=== PATIENT | female | born 1960 | race African-American/Black ===

== ENCOUNTER 2019-03-31 08:26 | Inpatient (IN) | payer MEDICARE ==
[2019-03-31] MEDS ORDERED: Labetalol HCl 100 MG/20 ML VIAL ONE (08:47)
[2019-03-31] MEDS ORDERED: Ondansetron PF 4 MG/2 ML Vial ONE ×2 (08:50→11:48)
[2019-03-31] MEDS ORDERED: Morphine 4 MG/ML VIAL ONE (09:37)
[2019-03-31] MEDS ORDERED: Lorazepam 2 MG/ML VIAL ONE ×3 (09:40→16:10)
[2019-03-31] MEDS ORDERED: Iopamidol-370 76% 500 ML 1 ML ONE (11:38)
[2019-03-31] MEDS ORDERED: Piperacillin/Tazobactam 4.5 GM VIAL ONE (12:33)
[2019-03-31] MEDS ORDERED: Vancomycin 1.5 GRAM/300 ML BAG 1.5 GM in Premix Bag 1 BAG IVPB SCH (13:45)
--- NOTE | 2019-03-31 14:29 | CT ---
CT HEAD NONCONTRAST: Date: 03/31/19 HISTORY: Altered mental status. COMPARISON: None available. Hospital system is nonfunctional. FINDINGS: There is no evidence of acute intracranial hemorrhage or infarct. The ventricles appear normal in siz e, shape, and position. There is no mass effect or shift of midline structures. Visualized paranasal sinuses remain well aerated. IMPRESSION: No acute intracranial abnormalities are demonstrated. POS: [facility]
--- NOTE | 2019-03-31 14:30 | CT ---
CT ABDOMEN AND PELVIS WITH IV CONTRAST: Date: 03/31/19 HISTORY: Abdominal pain. Nausea and vomiting. COMPARISON: None available. Hospital system is nonfunctioning. FINDINGS: Very mild nonspecific ground-glass parenchymal opacity involving each lung base. Small hiatal hernia. Solid organs are intact. No enlarged lymph nodes or free fluid. Appendix not inflamed. No evidence of bowel obstruction or inflammation. Urinary bladder is unremarka ble. Mild degenerative changes lumbar spine. IMPRESSION: No significant abnormalities are demonstrated. POS: [facility]
[2019-03-31] MEDS ORDERED: diphenhydrAMINE 50 MG/ML VIAL ONE (14:39)
[2019-03-31] MEDS ORDERED: Haloperidol Lactate 5 MG/ML VIAL ONE (14:39)
[2019-03-31 14:53] LABS: ALT (SGPT) 17 U/L (8-55); AST (SGOT) 16 U/L (5-34); Acetaminophen Less than 6.0 mcg/mL (10.0-30.0); Albumin 3.7 g/dL (3.5-5.0); Alcohol Less than 10 mg/dL (Less than 10); Alkaline Phosphatase 140 U/L (40-110); Anion Gap 21 mmol/L (10-20); BUN (Urea Nitrogen) 24 mg/dL (9.8-20.1); Bilirubin, Total 0.7 mg/dL (0.2-1.2); Calc. Creatinine Clearance 0 mL/min (70-130); Calcium 9.8 mg/dL (7.8-10.44); Carbon Dioxide 20 mmol/L (22-29); Chloride 99 mmol/L (98-107); Estimated GFR-MDRD 42; Globulin 4.1 g/dL (2.4-3.5); Glucose 504 mg/dL (70-105); Lipase 13 U/L (8-78); Potassium 4.2 mmol/L (3.5-5.1); Protein, Total 7.8 g/dL (6.0-8.3); Salicylate Less than 8.0 mg/dL (15.0-30.0); Sodium 136 mmol/L (136-145)
[2019-03-31 14:55] LABS: Lactic Acid 3.5 mmol/L (0.5-2.2)
[2019-03-31] MEDS ORDERED: Acetaminophen 650 MG Suppository PR PRN (15:02)
[2019-03-31] MEDS ORDERED: Ondansetron PF 4 MG/2 ML Vial IVP PRN (15:02)
[2019-03-31] MEDS ORDERED: Dextrose 5% in Water 1,000 ML IV PRN (15:02)
[2019-03-31] MEDS ORDERED: Dextrose 50% Abboject 50 ML SYRINGE SLOW IVP PRN (15:02)
[2019-03-31] MEDS ORDERED: Labetalol HCl 100 MG/20 ML VIAL SLOW IVP PRN (15:12)
--- NOTE | 2019-03-31 15:45 | HP ---
PRIMARY CARE PROVIDER: Darcy. HISTORY OF PRESENT ILLNESS: Family with patient, do not live with her. The patient apparently woke up this morning, delirious. Daughter called the mineral technologist, it is reported that the patient is noncompliant with diet and medications. She was brought to the emergency room. No other history available. REVIEW OF SYSTEMS: Unobtainable due to the patient's obtunded mental status. PAST MEDICAL HISTORY: Pertinent for diabetes mellitus type 2, insulin dependent with neuropathy; hypertension; dyslipidemia. The patient is on unknown medicines according to the family that is here, however, when the patient was seen in an outlying emergency room earlier this year, she was on tizanidine 2 mg every 6 hours, losartan 100 mg a day, acyclovir 400 mg twice a day, tramadol 50 mg every 4 to 6 hours for pain, Lasix 20 mg a day, amlodipine 10 mg one-half tablet a day, Zocor 40 mg a day, gabapentin 600 mg three tabs twice a day, levothyroxine 50 mcg a day, Humulin R U-500 35 units with breakfast and lunch and 30 units with supper, and amitriptyline 25 units a day. ALLERGIES: SHE WAS REPORTED TO HAVE AN ALLERGY TO CEPHALEXIN. PAST SURGICAL HISTORY: and hysterectomy. FAMILY HISTORY: Diabetes in multiple members of the family. SOCIAL HISTORY: Father, Shyam Murphy at bedside. She is single. He is her next of kin. No tobacco. No alcohol. PHYSICAL EXAMINATION: GENERAL/VITAL SIGNS: She would respond, but not appropriately to verbal stimuli. Blood pressure was 180/105, respirations are 16, pulse rate 92, and temperature 98. In general, she is an overweight female. HEAD, EYES, EARS, NOSE, and THROAT: Reveals pupils are equal and round. Extraocular movements are intact. Sclerae are white. Tympanic membranes occluded with cerumen. Nose is clear. Mouth is clear. Multiple teeth missing. NECK: No jugular venous distention, adenopathy, or thyromegaly. CHEST: Distant breath sounds, but clear. No rales or wheezes. HEART: Regular rate and rhythm. No murmurs. No gallops. ABDOMEN: Protuberant. No hepatosplenomegaly. No mass. No rebound. EXTREMITIES: Reveal 1+ edema. No cyanosis or clubbing. PULSES: Carotid, radial, femoral, and dorsalis pedis pulses intact. SKIN: Warm and dry without bruises or rash. HEME/LYMPH: No tender or swollen lymph nodes noted. NEUROLOGIC: Cranial nerves grossly intact. Moves all extremities. LABORATORY DATA: I was told that the hemoglobin was less than 7. The blood sugar was greater than 600. I find no documentation of this in the chart. No EKG has been provided. No chest x-ray has been provided. Brain CT shows no acute intracranial process. Abdomen and pelvis CT are unrevealing. ADMITTING DIAGNOSES: 1. Encephalopathy. 2. Severe anemia. 3. Diabetes mellitus type 2, insulin dependent, uncontrolled with marked hyperglycemia. 4. Hypertension. 5. Dyslipidemia. PLAN: Blood cultures have been ordered. Cefepime and vancomycin have been ordered. Sliding scale insulin with q.4 hours Accu-Cheks have been ordered. H and H q.6 hours has been ordered after transfusion because there are no labs on the chart. I have at this point ordered a stat CBC, a stat basic metabolic profile, and a stat chest x-ray. The patient needs a stool for occult blood. This case is very confusing and difficult due to the downtime of the computer system at [facility]. The lack of confirmation of laboratory for her elevated blood pressure, p.r.n. labetalol and Apresoline orders have been ordered. Hopefully, we can get this patient out of the emergency room soon and up stairs. Job ID: [id number]
[2019-03-31 15:53] LABS: Hemoglobin 6.3 g/dL (12.0-16.0); Mean Corpuscular HGB CONC 33.2 g/dL (32.0-36.0); Mean Corpuscular Hemoglobin 29.2 pg (27.0-31.0); Mean Corpuscular Volume 87.8 fL (78.0-98.0); Mean Platelet Volume 9.7 fL (7.4-10.4); Platelet Count 507 thou/uL (130-400); RBC Distribution Width 12.7 % (11.5-14.5); Red Blood Cell (RBC) Count 2.16 mill/uL (4.20-5.40); White Blood Cell (WBC) Count 19.9 thou/uL (4.8-10.8)
[2019-03-31 15:54] LABS: Band 1 % (5-11); Eosinophils 2 % (0-10); Lymphocytes 15 % (21-51); MDiff Complete? YES; Monocytes 4 % (0-10); Neutrophil 77 % (42-75)
[2019-03-31 15:55] LABS: Polychromasia SLIGHT = 2-3 cells (100X) (0-2/hpf)
[2019-03-31 16:02] LABS: Troponin I 0.029 ng/mL (< 0.028)
--- NOTE | 2019-03-31 16:03 | RAD ---
PORTABLE CHEST 1 VIEW: DATE: 03/31/2019. TIME: 9:33 a.m. HISTORY: Chest pain, dyspnea. FINDINGS/IMPRESSION: The heart size is borderline. The aorta is tortuous. No focal areas of consolidation, pneumothorace s, kiran pulmonary edema, or large effusions are seen. There is mild prominence of the pulmonary vas cularity. POS: [facility]
[2019-03-31 16:47] LABS: #Lymphocytes 3.1 thou/uL (1.20-3.40); #Monocytes 1.2 thou/uL (0.11-0.59); #Neutrophils 9.5 thou/uL (1.40-6.50); %Basophils 0.3 % (0.0-1.0); %Eosinophils 0.1 % (0.0-10.0); %Lymphocytes 22.3 % (21.0-51.0); %Monocytes 8.5 % (0.0-10.0); %Neutrophils 68.8 % (42.0-75.0); Hemoglobin 14.3 g/dL (12.0-16.0); Mean Corpuscular Hemoglobin 29.7 pg (27.0-31.0); Mean Corpuscular Volume 90.1 fL (78.0-98.0); Mean Platelet Volume 9.6 fL (7.4-10.4); Platelet Count 279 thou/uL (130-400); RBC Distribution Width 13.1 % (11.5-14.5); Red Blood Cell (RBC) Count 4.82 mill/uL (4.20-5.40); White Blood Cell (WBC) Count 13.8 thou/uL (4.8-10.8)
--- NOTE | 2019-03-31 16:57 | PDOC.EVN ---
Event Note - Event Note Event Note: initial Hg <7, FU 14, suspect first lizeth error. No GI COTE indicated
[2019-03-31] MEDS ORDERED: Insulin Regular 300 UNITS/3 ML VIAL ONE (16:58)
[2019-03-31 17:10] LABS: Pregnancy Test - Urine (BHCG) Negative (Negative); Pregu Control Background? CLEAR/WHITE (CLR/WHITE); Pregu Control Bar Appear? YES (CONTROL BAR); Specific Gravity 1.015 (1.002-1.036)
[2019-03-31 17:14] LABS: ALT (SGPT) 16 U/L (8-55); AST (SGOT) 15 U/L (5-34); Albumin 3.7 g/dL (3.5-5.0); Alkaline Phosphatase 134 U/L (40-110); Anion Gap 18 mmol/L (10-20); BUN (Urea Nitrogen) 23 mg/dL (9.8-20.1); Bilirubin, Total 0.9 mg/dL (0.2-1.2); Calc. Creatinine Clearance 0 mL/min (70-130); Calcium 9.3 mg/dL (7.8-10.44); Carbon Dioxide 20 mmol/L (22-29); Chloride 104 mmol/L (98-107); Estimated GFR-MDRD 41; Globulin 3.8 g/dL (2.4-3.5); Glucose 467 mg/dL (70-105); Potassium 4.1 mmol/L (3.5-5.1); Protein, Total 7.5 g/dL (6.0-8.3); Sodium 138 mmol/L (136-145)
[2019-03-31 17:18] LABS: Amphetamine Not Detected (NotDetected); Barbiturates Screen Not Detected (NotDetected); Benzodiazepine Screen Not Detected (NotDetected); Cocaine Metabolite Screen Not Detected (NotDetected); Medtox Control Line Valid? VALID (VALID); Medtox Reader # READER 1; Methadone Not Detected (NotDetected); Methamphetamine Not Detected (NotDetected); Opiate Screen Not Detected (NotDetected); Oxycodone Screen Not Detected (NotDetected); Phencyclidine (PCP) Not Detected (NotDetected); THC/Cannabinoid Screen Not Detected (NotDetected); Tricyclic Screen Not Detected (NotDetected)
[2019-03-31 17:19] LABS: Bilirubin Small (Negative); Blood, Urine Moderate (Negative); Clarity Slightly Cloudy (Clear); Glucose, Urine (Dipstick) >=1000 mg/dL (Negative); Leukocyte Negative (Negative); Nitrite Negative (Negative); Protein, Urine (Dipstick) > or equal to 300 mg/dL (Neg-Trace)
[2019-03-31 17:21] LABS: Bacteria/HPF Rare-Few HPF (None Seen); Squamous Epithelial None Seen HPF (0-3); WBC/HPF 0-3 HPF (0-3)
[2019-03-31] MEDS ORDERED: hydrALAZINE 20 MG/ML VIAL ONE (17:40)
[2019-03-31] MEDS ORDERED: HumaLOG 300 UNITS/3 ML VIAL ONE (18:53)
[2019-03-31 20:06] LABS: Lactic Acid 3.1 mmol/L (0.5-2.2)
[2019-03-31] MEDS ORDERED: Cefepime 2 GM in Sodium Chloride 0.9% 100 ML IVPB SCH (20:30)
[2019-03-31] MEDS ORDERED: Vancomycin HCl 1.25 GM in Sodium Chloride 0.9% 250 ML 300 ML IVPB SCH (21:00)
[2019-03-31] MEDS: Sodium Chloride 0.9% 1,000 ML IV SCH ×2 (22:13→22:38)
[2019-03-31] MEDS: Famotidine/PF 20 mg/2ml Vial SLOW IVP SCH (22:13)
[2019-03-31] MEDS: HumaLOG 300 UNITS/3 ML VIAL SC PRN (22:20)
[2019-03-31 22:48] VITALS: BMI 50.9
[2019-03-31] MEDS ORDERED: Pharmacy to Dose : CEFEPIME IVPB PRN (22:56)
[2019-03-31] MEDS ORDERED: Vancomycin HCl 750 MG in Sodium Chloride 0.9% 250 ML 250 ML IVPB SCH (23:00)
[2019-03-31] MEDS: Lorazepam 2 MG/ML VIAL SLOW IVP PRN (23:53)
[2019-04-01] MEDS: HumaLOG 300 UNITS/3 ML VIAL SC PRN ×2 (03:37→12:29)
[2019-04-01] MEDS: hydrALAZINE 20 MG/ML VIAL SLOW IVP PRN ×3 (03:37→21:37)
[2019-04-01] MEDS: Sodium Chloride 0.9% 1,000 ML IV SCH ×3 (03:41→19:42)
[2019-04-01] MEDS: Lorazepam 2 MG/ML VIAL SLOW IVP PRN ×4 (04:12→23:24)
[2019-04-01 05:23] LABS: Anion Gap 16 mmol/L (10-20); BUN (Urea Nitrogen) 23 mg/dL (9.8-20.1); Calc. Creatinine Clearance 110 mL/min (70-130); Calcium 9.1 mg/dL (7.8-10.44); Carbon Dioxide 19 mmol/L (22-29); Chloride 111 mmol/L (98-107); Estimated GFR-MDRD 48; Glucose 284 mg/dL (70-105); Potassium 4.2 mmol/L (3.5-5.1); Sodium 142 mmol/L (136-145)
[2019-04-01] MEDS: Cefepime 2 GM in Sodium Chloride 0.9% 100 ML IVPB SCH (07:57)
[2019-04-01] MEDS: Famotidine/PF 20 mg/2ml Vial SLOW IVP SCH ×2 (07:59→21:21)
[2019-04-01] MEDS ORDERED: FLU VACC QS2019-20(6MOS UP)/PF 60 MCG/0.5 ML SYRINGE IM ONE (09:00)
--- NOTE | 2019-04-01 11:57 | PDOC.HOSPP ---
- Subjective Encounter Date: 04/01/19 Encounter Time: 07:15 Subjective: pt was asking for water, she was on 4 point restraint, no fever, hypertensive, required ativan for agitation, off tele monitor - Objective Vital Signs & Weight: Vital Signs (12 hours) Temp Pulse Resp BP BP Pulse Ox 04/01/19 08:39 124/83 04/01/19 07:58 106 H 04/01/19 07:47 98.9 F 106 H 18 213/102 H 100 04/01/19 04:05 111 H 18 171/89 H 100 04/01/19 03:37 103 H 189/103 H 04/01/19 03:29 99.4 F 108 H 18 189/103 H 100 04/01/19 00:00 98.2 F 110 H 18 180/92 H 100 Weight Weight 345 lb I&O: 03/31/19 04/01/19 04/02/19 06:59 06:59 06:59 Intake Total 1500 Output Total 1000 Balance 500 Result Diagrams: 03/31/19 16:41 04/01/19 04:47 Additional Labs: Accuchecks 04/01/19 04/01/19 03/31/19 08:28 03:38 23:38 POC Glucose 291 H 358 H 322 H 03/31/19 22:23 POC Glucose 417 H Radiology Reviewed by me: Yes Hospitalist ROS - Review of Systems ROS unobtainable: due to mental status - Medication Medications: Active Medications Generic Name Dose Route Start Last Admin Trade Name Freq PRN Reason Stop Dose Admin Famotidine 20 mg 03/31/19 21:00 04/01/19 07:59 Pepcid SLOW IVP 20 mg Q12HR LALO Administration Hydralazine HCl 10 mg 03/31/19 15:12 04/01/19 07:58 Apresoline SLOW IVP 10 mg Q4H PRN Administration SBP > 180 and HR < 70 Sodium Chloride 1,000 mls @ 150 mls/hr 03/31/19 15:02 04/01/19 03:41 Normal Saline 0.9% IV 1,000 mls .Q6H40M LALO Administration Cefepime HCl 2 gm/ Sodium 100 mls @ 200 mls/hr 04/01/19 09:00 04/01/19 07:57 Chloride IVPB 100 mls 0900 LALO Administration Insulin Human Lispro 0 units 12/04/19 15:02 04/01/19 03:37 Humalog SC 10 unit .MODERATE SLIDING SC PRN Administration Moderate Correctional Scale Lorazepam 1 mg 03/31/19 22:46 04/01/19 04:12 Ativan SLOW IVP 1 mg Q4H PRN Administration Anxiety/Agitation - Exam General Appearance: NAD, ill appearing Eye: PERRL, anicteric sclera ENT: normocephalic atraumatic, no oropharyngeal lesions, dry oral mucosa Neck: supple, symmetric, no JVD, no thyromegaly, no lymphadenopathy Heart: RRR, no murmur, no gallops, no rubs Respiratory: CTAB, no wheezes, no rales, no ronchi Gastrointestinal: soft, non-tender, non-distended, normal bowel sounds, no palpable masses, no hepatomegaly Gastrointestinal - other findings: morbid obesity Extremities: no cyanosis, no clubbing Skin: normal turgor, no lesions, no rashes Neurological: no focal deficits Musculoskeletal: normal tone, normal strength Psychiatric: not oriented Hosp A/P (1) Acute metabolic encephalopathy Code(s): G93.41 - METABOLIC ENCEPHALOPATHY Status: Acute (2) Sepsis Code(s): A41.9 - SEPSIS, UNSPECIFIED ORGANISM Status: Acute Qualifiers: Sepsis type: sepsis due to unspecified organism Sepsis acute organ dysfunction status: with acute organ dysfunction Severe sepsis acute organ dysfunction type: encephalopathy Severe sepsis shock status: without septic shock Qualified Code(s): A41.9 - Sepsis, unspecified organism; R65.20 - Severe sepsis without septic shock; G93.40 - Encephalopathy, unspecified (3) Lactic acidosis Code(s): E87.2 - ACIDOSIS Status: Acute (4) Hyperglycemia due to type 2 diabetes mellitus Code(s): E11.65 - TYPE 2 DIABETES MELLITUS WITH HYPERGLYCEMIA Status: Acute Qualifiers: 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-term use Qualified Code( s): E11.65 - Type 2 diabetes mellitus with hyperglycemia; Z79.4 - nurse epidemiologist ( current) use of insulin (5) Morbid obesity with BMI of 50.0-59.9, adult Code(s): E66.01 - MORBID (SEVERE) OBESITY DUE TO EXCESS CALORIES; Z68.43 - BODY MASS INDEX (BMI) 50.0-59.9, ADULT Status: Chronic (6) Acute kidney injury Code(s): N17.9 - ACUTE KIDNEY FAILURE, UNSPECIFIED Status: Acute (7) Hypertension Code(s): I10 - ESSENTIAL (PRIMARY) HYPERTENSION Status: Chronic (8) Dyslipidemia Code(s): E78.5 - HYPERLIPIDEMIA, UNSPECIFIED Status: Chronic (9) Hypothyroidism Code(s): E03.9 - HYPOTHYROIDISM, UNSPECIFIED Status: Chronic Qualifiers: Hypothyroidism type: unspecified Qualified Code(s): E03.9 - Hypothyroidism , unspecified - Plan old records reviewed/req, continue antibiotics 04/01/19 try bedside swallow evaluation will see if she does not need restraints continue IVF source of sepsis unclear, continue empiric antibiotics at this time not stable and not ideal to do MRI ( does not have focal deficit but PRES possible form high BP and hyperglycemia) will monitor closely repeat labs tomorrow no family bedside to update
[2019-04-01] MEDS ORDERED: Ziprasidone 20 MG VIAL IM SCH (17:15)
[2019-04-01] MEDS ORDERED: Cefepime 2 GM in Sodium Chloride 0.9% 100 ML IVPB SCH (21:00)
[2019-04-02] MEDS: Lorazepam 2 MG/ML VIAL SLOW IVP PRN ×5 (03:21→23:04)
[2019-04-02] MEDS: Sodium Chloride 0.9% 1,000 ML IV SCH ×3 (03:22→12:22)
[2019-04-02] MEDS: hydrALAZINE 20 MG/ML VIAL SLOW IVP PRN (03:28)
[2019-04-02 04:38] LABS: #Basophils 0.1 thou/uL (0.0-0.2); #Eosinphils 0.3 thou/uL (0.0-0.7); #Lymphocytes 3.1 thou/uL (1.20-3.40); #Monocytes 1.1 thou/uL (0.11-0.59); #Neutrophils 8.9 thou/uL (1.40-6.50); %Basophils 0.5 % (0.0-1.0); %Eosinophils 2.5 % (0.0-10.0); %Lymphocytes 22.7 % (21.0-51.0); %Monocytes 8.5 % (0.0-10.0); %Neutrophils 65.9 % (42.0-75.0); Hemoglobin 13.7 g/dL (12.0-16.0); Mean Corpuscular HGB CONC 32.5 g/dL (32.0-36.0); Mean Corpuscular Hemoglobin 29.4 pg (27.0-31.0); Mean Corpuscular Volume 90.5 fL (78.0-98.0); Mean Platelet Volume 9.5 fL (7.4-10.4); Platelet Count 248 thou/uL (130-400); RBC Distribution Width 13.4 % (11.5-14.5); Red Blood Cell (RBC) Count 4.64 mill/uL (4.20-5.40); White Blood Cell (WBC) Count 13.4 thou/uL (4.8-10.8)
[2019-04-02 04:51] LABS: Hemoglobin A1c 11.9 % (4.0-6.0)
[2019-04-02 04:57] LABS: Anion Gap 17 mmol/L (10-20); BUN (Urea Nitrogen) 16 mg/dL (9.8-20.1); Calc. Creatinine Clearance 120 mL/min (70-130); Carbon Dioxide 15 mmol/L (22-29); Chloride 115 mmol/L (98-107); Estimated GFR-MDRD 53; Glucose 257 mg/dL (70-105); Sodium 142 mmol/L (136-145)
[2019-04-02] MEDS: HumaLOG 300 UNITS/3 ML VIAL SC PRN ×2 (05:39→13:20)
[2019-04-02] MEDS: Cefepime 2 GM in Sodium Chloride 0.9% 100 ML IVPB SCH ×2 (09:38→21:03)
[2019-04-02] MEDS: Famotidine/PF 20 mg/2ml Vial SLOW IVP SCH ×2 (09:38→21:03)
[2019-04-02] MEDS ORDERED: Calcium Carbonate 500 MG ChewTAB PO PRN (10:58)
[2019-04-02] MEDS ORDERED: HYDROcodone/Acetaminophen 5/325 mg Tablet PO PRN (10:58)
[2019-04-02] MEDS ORDERED: Sodium Chloride 0.65% Nasal 44 ML BOT EA NARE PRN (10:58)
[2019-04-02] MEDS ORDERED: Diabetic Tussin 200 MG/10 ML UDCUP PO PRN (10:58)
[2019-04-02] MEDS ORDERED: Loperamide HCl 2 MG CAP PO PRN (10:58)
[2019-04-02] MEDS ORDERED: Bisacodyl 10 MG SUPP PR PRN (10:58)
[2019-04-02] MEDS ORDERED: Cepastat Lozenges 1 LOZ PO PRN (10:58)
[2019-04-02] MEDS ORDERED: Ondansetron ODT 4 MG TAB PO PRN (10:58)
[2019-04-02] MEDS ORDERED: Senokot S 8.6-50 MG TAB PO PRN (10:58)
[2019-04-02] MEDS ORDERED: Artificial Tears 18 DROP/0.9 ML EA EYE PRN (10:58)
[2019-04-02] MEDS ORDERED: Loratadine 10 MG TAB PO PRN (10:58)
--- NOTE | 2019-04-02 12:13 | PDOC.HOSPP ---
- Subjective Encounter Date: 04/02/19 Encounter Time: 09:30 Subjective: Patient seen and examined. pt is agitated, and requires restraint. No overnight events - Objective Vital Signs & Weight: Vital Signs (12 hours) Temp Pulse Resp BP BP Pulse Ox 04/02/19 11:24 98.3 F 96 16 143/96 H 100 04/02/19 07:56 98 16 185/85 H 98 04/02/19 05:21 178/91 H 04/02/19 03:28 102 H 192/88 H 04/02/19 03:25 102 H 20 192/88 H 100 Weight Weight 345 lb I&O: 04/01/19 04/02/19 04/03/19 06:59 06:59 06:59 Intake Total 1500 Output Total 1000 Balance 500 Result Diagrams: 04/02/19 04:30 04/02/19 04:30 Additional Labs: Accuchecks 04/02/19 04/02/19 04/01/19 04:06 00:22 20:38 POC Glucose 256 H 203 H 239 H 04/01/19 04/01/19 03/31/19 16:31 12:00 21:32 POC Glucose 227 H 323 H 437 H EKG Reviewed by me: Yes Hospitalist ROS - Review of Systems ROS unobtainable: due to mental status - Medication Medications: Active Medications Generic Name Dose Route Start Last Admin Trade Name Freq PRN Reason Stop Dose Admin Famotidine 20 mg 03/31/19 21:00 04/02/19 09:38 Pepcid SLOW IVP 20 mg Q12HR LALO Administration Hydralazine HCl 10 mg 03/31/19 15:12 04/02/19 03:28 Apresoline SLOW IVP 10 mg Q4H PRN Administration SBP > 180 and HR < 70 Sodium Chloride 1,000 mls @ 150 mls/hr 03/31/19 15:02 04/02/19 07:55 Normal Saline 0.9% IV 1,000 mls .Q6H40M LALO Administration Vancomycin HCl 2 gm/ Sodium 500 mls @ 250 mls/hr 04/01/19 15:00 04/01/19 14: 36 Chloride IVPB 500 mls 1500 LALO Administration Cefepime HCl 2 gm/ Sodium 100 mls @ 200 mls/hr 04/01/19 09:00 04/02/19 09:38 Chloride IVPB 100 mls 0900 LALO Administration Insulin Human Lispro 0 units 03/31/19 15:02 04/02/19 05:39 Humalog SC 6 unit .MODERATE SLIDING SC PRN Administration Moderate Correctional Scale Labetalol HCl 20 mg 03/31/19 15:12 04/01/19 19:39 Normodyne SLOW IVP 20 mg Q4H PRN Administration SBP > 180 and HR >/= 70 Lorazepam 1 mg 03/31/19 22:46 04/02/19 09:42 Ativan SLOW IVP 1 mg Q4H PRN Administration Anxiety/Agitation - Exam General Appearance: NAD, awake alert Eye: PERRL, anicteric sclera ENT: normocephalic atraumatic, no oropharyngeal lesions Neck: supple, symmetric, no JVD, no thyromegaly Heart: RRR, no murmur, no gallops Respiratory: CTAB, no wheezes, no rales, no ronchi Gastrointestinal: soft, non-tender, non-distended, normal bowel sounds Extremities: no cyanosis, no clubbing, no edema Skin: normal turgor, no lesions Neurological: no focal deficits Musculoskeletal: normal tone, normal strength Psychiatric: not oriented Hosp A/P (1) Acute metabolic encephalopathy Code(s): G93.41 - METABOLIC ENCEPHALOPATHY Status: Acute (2) Sepsis Code(s): A41.9 - SEPSIS, UNSPECIFIED ORGANISM Status: Suspected Qualifiers: Sepsis type: sepsis due to unspecified organism Sepsis acute organ dysfunction status: with acute organ dysfunction Severe sepsis acute organ dysfunction type: encephalopathy Severe sepsis shock status: without septic shock Qualified Code(s): A41.9 - Sepsis, unspecified organism; R65.20 - Severe sepsis without septic shock; G93.40 - Encephalopathy, unspecified (3) Lactic acidosis Code(s): E87.2 - ACIDOSIS Status: Acute (4) Hyperglycemia due to type 2 diabetes mellitus Code(s): E11.65 - TYPE 2 DIABETES MELLITUS WITH HYPERGLYCEMIA Status: Acute Qualifiers: Diabetes mellitus chcf insulin use: with chcf use Qualified Code( s): E11.65 - Type 2 diabetes mellitus with hyperglycemia; Z79.4 - [facility] ( current) use of insulin (5) Morbid obesity with BMI of 50.0-59.9, adult Code(s): E66.01 - MORBID (SEVERE) OBESITY DUE TO EXCESS CALORIES; Z68.43 - BODY MASS INDEX (BMI) 50.0-59.9, ADULT Status: Chronic (6) Acute kidney injury Code(s): N17.9 - ACUTE KIDNEY FAILURE, UNSPECIFIED Status: Acute (7) Hypertension Code(s): I10 - ESSENTIAL (PRIMARY) HYPERTENSION Status: Chronic (8) Dyslipidemia Code(s): E78.5 - HYPERLIPIDEMIA, UNSPECIFIED Status: Chronic (9) Hypothyroidism Code(s): E03.9 - HYPOTHYROIDISM, UNSPECIFIED Status: Chronic Qualifiers: Hypothyroidism type: unspecified Qualified Code(s): E03.9 - Hypothyroidism , unspecified - Plan old records reviewed/req, continue antibiotics 04/01/19 try bedside swallow evaluation will see if she does not need restraints continue IVF source of sepsis unclear, continue empiric antibiotics at this time not stable and not ideal to do MRI ( does not have focal deficit but PRES possible form high BP and hyperglycemia) will monitor closely repeat labs tomorrow no family bedside to update 04/02 spoke with daughter and updated plan of care continue empiric antibiotic reduce IVF may need sitter to avoid restraint so far culture negative will check lactic acid and beta [place] as she has [employer] insurance, transfer process initiated
[2019-04-02 14:42] LABS: Vancomycin, Trough 11.6 ug/mL
[2019-04-02] MEDS ORDERED: Ziprasidone 20 MG VIAL IM PRN (15:09)
[2019-04-03] MEDS ORDERED: Vancomycin 1.5 GRAM/300 ML BAG 1.5 GM in Premix Bag 1 BAG IVPB SCH (03:00)
[2019-04-03] MEDS: hydrALAZINE 20 MG/ML VIAL SLOW IVP PRN (04:12)
[2019-04-03] MEDS: Lorazepam 2 MG/ML VIAL SLOW IVP PRN ×3 (04:12→23:16)
[2019-04-03] MEDS ORDERED: Non-Formulary Item 1 EACH (Tizanidine Hcl [Tizanidine Hcl] 2 MG) PO PRN (06:52)
[2019-04-03] MEDS ORDERED: tiZANidine HCl 4 MG TAB PO PRN (07:09)
[2019-04-03] MEDS: Sodium Chloride 0.9% 1,000 ML IV SCH (07:46)
[2019-04-03] MEDS: Cefepime 2 GM in Sodium Chloride 0.9% 100 ML IVPB SCH ×2 (08:27→21:08)
[2019-04-03] MEDS: Amitriptyline HCl 25 MG TAB PO SCH (08:28)
[2019-04-03] MEDS: Gabapentin 300 MG CAP PO SCH ×3 (08:28→23:42)
[2019-04-03] MEDS: Levothyroxine Sodium 50 MCG TAB PO SCH (08:28)
[2019-04-03] MEDS: Losartan 25 MG TAB PO SCH (08:28)
[2019-04-03] MEDS: Famotidine/PF 20 mg/2ml Vial SLOW IVP SCH ×2 (08:28→21:09)
[2019-04-03] MEDS: Amlodipine 5 MG TAB PO SCH (08:29)
[2019-04-03] MEDS: HumaLOG 300 UNITS/3 ML VIAL SC PRN (08:31)
[2019-04-03] MEDS ORDERED: Non-Formulary Item 1 EACH (Losartan Potassium [Losartan Potassium] 100 MG) PO SCH (09:00)
[2019-04-03] MEDS ORDERED: Non-Formulary Item 1 EACH (Gabapentin [Gabapentin] 600 MG) PO SCH (09:00)
--- NOTE | 2019-04-03 10:21 | PDOC.HOSPP ---
- Subjective Encounter Date: 04/03/19 Encounter Time: 08:15 Subjective: pt still encephalopathic and require sitter - Objective Vital Signs & Weight: Vital Signs (12 hours) Temp Pulse Resp BP BP Pulse Ox 04/03/19 10:12 97.9 F 96 18 156/92 H 98 04/03/19 09:16 176/82 H 04/03/19 07:42 97.7 F 108 H 18 190/88 H 98 04/03/19 05:30 186/94 H 04/03/19 04:12 96 211/98 H 04/03/19 03:43 100 18 95 04/02/19 23:51 98.0 F 94 16 135/72 100 Weight Weight 345 lb Result Diagrams: 04/02/19 04:30 04/02/19 04:30 Additional Labs: Accuchecks 04/03/19 04/03/19 04/03/19 07:58 06:00 00:12 POC Glucose 201 H 227 H 182 H 04/02/19 04/02/19 04/02/19 20:20 16:15 12:28 POC Glucose 153 H 164 H 203 H EKG Reviewed by me: Yes Hospitalist ROS - Review of Systems ROS unobtainable: due to mental status - Medication Medications: Active Medications Generic Name Dose Route Start Last Admin Trade Name Edwin PRN Reason Stop Dose Admin Amitriptyline HCl 25 mg 04/03/19 09:00 04/03/19 08:28 Elavil PO 25 mg DAILY LALO Administration Amlodipine Besylate 5 mg 04/03/19 09:00 04/03/19 08:29 Norvasc PO 5 mg DAILY LALO Administration Famotidine 20 mg 03/31/19 21:00 04/03/19 08:28 Pepcid SLOW IVP 20 mg Q12HR LALO Administration Gabapentin 600 mg 04/03/19 09:00 04/03/19 08:28 Neurontin PO 600 mg TID LALO Administration Hydralazine HCl 10 mg 03/31/19 15:12 04/03/19 04:12 Apresoline SLOW IVP 10 mg Q4H PRN Administration SBP > 180 and HR < 70 Cefepime HCl 2 gm/ Sodium 100 mls @ 200 mls/hr 04/02/19 21:00 04/03/19 08:27 Chloride IVPB 100 mls 0900,2100 LALO Administration Insulin Human Lispro 0 units 03/31/19 15:02 04/03/19 08:31 Humalog SC 4 unit .MODERATE SLIDING SC PRN Administration Moderate Correctional Scale Labetalol HCl 20 mg 03/31/19 15:12 04/01/19 19:39 Normodyne SLOW IVP 20 mg Q4H PRN Administration SBP > 180 and HR >/= 70 Levothyroxine Sodium 50 mcg 04/03/19 09:00 04/03/19 08:28 Synthroid PO 50 mcg DAILY LALO Administration Lorazepam 1 mg 03/31/19 22:46 04/03/19 08:29 Ativan SLOW IVP 1 mg Q4H PRN Administration Anxiety/Agitation Losartan Potassium 100 mg 04/03/19 09:00 04/03/19 08:28 Cozaar PO 100 mg DAILY LALO Administration Ziprasidone 20 mg 04/02/19 15:09 04/03/19 01:50 Geodon IM 20 mg Q6H PRN Administration Agitation - Exam General Appearance: NAD Eye: PERRL, anicteric sclera ENT: normocephalic atraumatic, no oropharyngeal lesions Neck: supple, symmetric, no JVD Heart: RRR, no murmur, no gallops, no rubs Respiratory: CTAB, no wheezes, no rales, no ronchi Gastrointestinal: soft, non-tender, non-distended, normal bowel sounds Extremities: no cyanosis, no clubbing, no edema Skin: normal turgor, no lesions Neurological: no focal deficits Musculoskeletal: normal tone, normal strength Psychiatric: not oriented Hosp A/P (1) Acute metabolic encephalopathy Code(s): G93.41 - METABOLIC ENCEPHALOPATHY Status: Acute (2) Sepsis Code(s): A41.9 - SEPSIS, UNSPECIFIED ORGANISM Status: Suspected Qualifiers: Sepsis type: sepsis due to unspecified organism Sepsis acute organ dysfunction status: with acute organ dysfunction Severe sepsis acute organ dysfunction type: encephalopathy Severe sepsis shock status: without septic shock Qualified Code(s): A41.9 - Sepsis, unspecified organism; R65.20 - Severe sepsis without septic shock; G93.40 - Encephalopathy, unspecified (3) Lactic acidosis Code(s): E87.2 - ACIDOSIS Status: Acute (4) Hyperglycemia due to type 2 diabetes mellitus Code(s): E11.65 - TYPE 2 DIABETES MELLITUS WITH HYPERGLYCEMIA Status: Acute Qualifiers: Diabetes mellitus longterm insulin use: with longterm use Qualified Code( s): E11.65 - Type 2 diabetes mellitus with hyperglycemia; Z79.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 of insulin (5) Morbid obesity with BMI of 50.0-59.9, adult Code(s): E66.01 - MORBID (SEVERE) OBESITY DUE TO EXCESS CALORIES; Z68.43 - BODY MASS INDEX (BMI) 50.0-59.9, ADULT Status: Chronic (6) Acute kidney injury Code(s): N17.9 - ACUTE KIDNEY FAILURE, UNSPECIFIED Status: Acute (7) Hypertension Code(s): I10 - ESSENTIAL (PRIMARY) HYPERTENSION Status: Chronic (8) Dyslipidemia Code(s): E78.5 - HYPERLIPIDEMIA, UNSPECIFIED Status: Chronic (9) Hypothyroidism Code(s): E03.9 - HYPOTHYROIDISM, UNSPECIFIED Status: Chronic Qualifiers: Hypothyroidism type: unspecified Qualified Code(s): E03.9 - Hypothyroidism , unspecified - Plan old records reviewed/req, continue antibiotics, PT/OT, clinical social worker 04/01/19 try bedside swallow evaluation will see if she does not need restraints continue IVF source of sepsis unclear, continue empiric antibiotics at this time not stable and not ideal to do MRI ( does not have focal deficit but PRES possible form high BP and hyperglycemia) will monitor closely repeat labs tomorrow no family bedside to update 04/02 spoke with daughter and updated plan of care continue empiric antibiotic reduce IVF may need sitter to avoid restraint so far culture negative will check lactic acid and beta [place] as she has [employer] insurance, transfer process initiated 04/03/19 as pt still encephalopathic and unclear etiology, will do EEG and consult neurology medication reviewed and continue to provide supportive care DC IVF start PT/OT as tolerated, discharge planning DC vancomycin, continue cefepime diet as tolerated
[2019-04-03 10:46] LABS: Anion Gap 14 mmol/L (10-20); BUN (Urea Nitrogen) 13 mg/dL (9.8-20.1); Calc. Creatinine Clearance 159 mL/min (70-130); Calcium 8.8 mg/dL (7.8-10.44); Carbon Dioxide 19 mmol/L (22-29); Chloride 111 mmol/L (98-107); Estimated GFR-MDRD 73; Glucose 180 mg/dL (70-105); Potassium 3.3 mmol/L (3.5-5.1); Sodium 141 mmol/L (136-145)
[2019-04-03] MEDS: Acetaminophen 500 MG TAB PO PRN ×2 (17:00→17:07)
[2019-04-03] MEDS ORDERED: Simvastatin 40 MG TAB PO SCH (21:00)
[2019-04-04] MEDS: Atorvastatin Calcium 20 MG TAB PO SCH ×2 (00:22→20:09)
[2019-04-04 05:23] LABS: #Basophils 0.1 thou/uL (0.0-0.2); #Eosinphils 0.3 thou/uL (0.0-0.7); #Lymphocytes 2.2 thou/uL (1.20-3.40); #Monocytes 0.8 thou/uL (0.11-0.59); #Neutrophils 5.7 thou/uL (1.40-6.50); %Basophils 0.6 % (0.0-1.0); %Eosinophils 3.7 % (0.0-10.0); %Lymphocytes 24.7 % (21.0-51.0); %Monocytes 8.6 % (0.0-10.0); %Neutrophils 62.5 % (42.0-75.0); Hemoglobin 12.8 g/dL (12.0-16.0); Mean Corpuscular HGB CONC 32.9 g/dL (32.0-36.0); Mean Corpuscular Hemoglobin 29.8 pg (27.0-31.0); Mean Corpuscular Volume 90.6 fL (78.0-98.0); Mean Platelet Volume 9.3 fL (7.4-10.4); Platelet Count 236 thou/uL (130-400); RBC Distribution Width 13.1 % (11.5-14.5); Red Blood Cell (RBC) Count 4.31 mill/uL (4.20-5.40); White Blood Cell (WBC) Count 9.1 thou/uL (4.8-10.8)
[2019-04-04 05:41] LABS: ALT (SGPT) 17 U/L (8-55); AST (SGOT) 24 U/L (5-34); Albumin 3.1 g/dL (3.5-5.0); Alkaline Phosphatase 95 U/L (40-110); Anion Gap 14 mmol/L (10-20); BUN (Urea Nitrogen) 10 mg/dL (9.8-20.1); Bilirubin, Total 0.7 mg/dL (0.2-1.2); Calc. Creatinine Clearance 156 mL/min (70-130); Calcium 8.9 mg/dL (7.8-10.44); Carbon Dioxide 19 mmol/L (22-29); Chloride 110 mmol/L (98-107); Estimated GFR-MDRD 71; Globulin 3.3 g/dL (2.4-3.5); Glucose 186 mg/dL (70-105); Potassium 3.3 mmol/L (3.5-5.1); Protein, Total 6.4 g/dL (6.0-8.3); Sodium 140 mmol/L (136-145)
[2019-04-04] MEDS: HumaLOG 300 UNITS/3 ML VIAL SC PRN ×3 (06:33→20:27)
[2019-04-04] MEDS ORDERED: Potassium Chloride 20 MEQ TAB PO SCH (07:00)
[2019-04-04 07:42] LABS: Magnesium 1.3 mg/dL (1.6-2.6)
[2019-04-04] MEDS ORDERED: Magnesium Sulfate 3 GM in Sodium Chloride 0.9% 100 ML IVPB SCH (08:15)
[2019-04-04] MEDS: Cefepime 2 GM in Sodium Chloride 0.9% 100 ML IVPB SCH ×2 (09:22→20:10)
[2019-04-04] MEDS: Gabapentin 300 MG CAP PO SCH ×3 (09:41→20:09)
[2019-04-04] MEDS: Losartan 25 MG TAB PO SCH (09:41)
[2019-04-04] MEDS: Levothyroxine Sodium 50 MCG TAB PO SCH (09:42)
[2019-04-04] MEDS: Metoprolol Tartrate 25 MG TAB PO SCH ×2 (09:42→20:09)
[2019-04-04] MEDS: Amlodipine 5 MG TAB PO SCH (09:42)
[2019-04-04] MEDS: Famotidine 20 MG TAB PO SCH ×2 (09:43→20:09)
[2019-04-04] MEDS: Amitriptyline HCl 25 MG TAB PO SCH (09:43)
--- NOTE | 2019-04-04 10:27 | PDOC.HOSPP ---
- Subjective Encounter Date: 04/04/19 Encounter Time: 08:50 Subjective: Patient seen and examined. No overnight events - Objective Vital Signs & Weight: Vital Signs (12 hours) Temp Pulse Resp BP Pulse Ox 04/04/19 09:42 100 04/04/19 07:35 98.4 F 100 20 187/84 H 97 04/03/19 22:46 98.8 F 103 H 16 146/81 H 98 Weight Weight 345 lb I&O: 04/03/19 04/04/19 04/05/19 06:59 06:59 06:59 Intake Total 600 Output Total 700 Balance -100 Result Diagrams: 04/04/19 05:04 04/04/19 05:04 Additional Labs: Accuchecks 04/04/19 04/03/19 04/03/19 09:24 22:42 15:54 POC Glucose 149 H 162 H 138 H 04/03/19 11:41 POC Glucose 149 H Hospitalist ROS - Review of Systems ROS unobtainable: due to mental status - Medication Medications: Active Medications Generic Name Dose Route Start Last Admin Trade Name Freq PRN Reason Stop Dose Admin Acetaminophen 650 mg 04/02/19 10:58 04/03/19 17:07 Tylenol PO 650 mg Q4H PRN Administration Fever > 101 Amitriptyline HCl 25 mg 04/03/19 09:00 04/04/19 09:43 Elavil PO 25 mg DAILY LALO Administration Amlodipine Besylate 5 mg 04/03/19 09:00 04/04/19 09:42 Norvasc PO 5 mg DAILY LALO Administration Atorvastatin Calcium 20 mg 04/03/19 21:00 04/04/19 00:22 Lipitor PO Not Given HS LALO Famotidine 20 mg 04/04/19 09:00 04/04/19 09:43 Pepcid PO 20 mg BID LALO Administration Gabapentin 600 mg 04/03/19 09:00 04/04/19 09:41 Neurontin PO 600 mg TID LALO Administration Hydralazine HCl 10 mg 03/31/19 15:12 04/03/19 04:12 Apresoline SLOW IVP 10 mg Q4H PRN Administration SBP > 180 and HR < 70 Cefepime HCl 2 gm/ Sodium 100 mls @ 200 mls/hr 04/02/19 21:00 04/04/19 09:22 Chloride IVPB 100 mls 0900,2100 LALO Administration Magnesium Sulfate 3 gm/ Sodium 106 mls @ 100 mls/hr 04/04/19 08:15 04/04/19 09:50 Chloride IVPB 04/04/19 12:00 106 mls NOW LALO Administration Insulin Human Lispro 0 units 03/31/19 15:02 04/04/19 06:33 Humalog SC 2 unit .MODERATE SLIDING SC PRN Administration Moderate Correctional Scale Labetalol HCl 20 mg 03/31/19 15:12 04/01/19 19:39 Normodyne SLOW IVP 20 mg Q4H PRN Administration SBP > 180 and HR >/= 70 Levothyroxine Sodium 50 mcg 04/03/19 09:00 04/04/19 09:42 Synthroid PO 50 mcg DAILY LALO Administration Lorazepam 1 mg 03/31/19 22:46 04/03/19 23:16 Ativan SLOW IVP 1 mg Q4H PRN Administration Anxiety/Agitation Losartan Potassium 100 mg 04/03/19 09:00 04/04/19 09:41 Cozaar PO 100 mg DAILY LALO Administration Metoprolol Tartrate 25 mg 04/04/19 09:00 04/04/19 09:42 Lopressor PO 25 mg BID LALO Administration Ziprasidone 20 mg 04/02/19 15:09 04/03/19 01:50 Geodon IM 20 mg Q6H PRN Administration Agitation - Exam General Appearance: NAD, awake alert Eye: PERRL, anicteric sclera ENT: normocephalic atraumatic, no oropharyngeal lesions Neck: supple, symmetric, no JVD, no thyromegaly Heart: RRR, no murmur, no gallops, no rubs Respiratory: CTAB, no wheezes, no rales Gastrointestinal: soft, non-tender, non-distended Extremities: no cyanosis, no clubbing Skin: normal turgor, no lesions Neurological: no focal deficits Musculoskeletal: normal tone, normal strength Psychiatric: not oriented Hosp A/P (1) Acute metabolic encephalopathy Code(s): G93.41 - METABOLIC ENCEPHALOPATHY Status: Acute (2) Sepsis Code(s): A41.9 - SEPSIS, UNSPECIFIED ORGANISM Status: Suspected Qualifiers: Sepsis type: sepsis due to unspecified organism Sepsis acute organ dysfunction status: with acute organ dysfunction Severe sepsis acute organ dysfunction type: encephalopathy Severe sepsis shock status: without septic shock Qualified Code(s): A41.9 - Sepsis, unspecified organism; R65.20 - Severe sepsis without septic shock; G93.40 - Encephalopathy, unspecified (3) Lactic acidosis Code(s): E87.2 - ACIDOSIS Status: Acute (4) Hyperglycemia due to type 2 diabetes mellitus Code(s): E11.65 - TYPE 2 DIABETES MELLITUS WITH HYPERGLYCEMIA Status: Acute Qualifiers: Diabetes mellitus longterm insulin use: with longterm use Qualified Code( s): E11.65 - Type 2 diabetes mellitus with hyperglycemia; Z79.4 - brand recorder ( current) use of insulin (5) Morbid obesity with BMI of 50.0-59.9, adult Code(s): E66.01 - MORBID (SEVERE) OBESITY DUE TO EXCESS CALORIES; Z68.43 - BODY MASS INDEX (BMI) 50.0-59.9, ADULT Status: Chronic (6) Acute kidney injury Code(s): N17.9 - ACUTE KIDNEY FAILURE, UNSPECIFIED Status: Acute (7) Hypertension Code(s): I10 - ESSENTIAL (PRIMARY) HYPERTENSION Status: Chronic (8) Dyslipidemia Code(s): E78.5 - HYPERLIPIDEMIA, UNSPECIFIED Status: Chronic (9) Hypothyroidism Code(s): E03.9 - HYPOTHYROIDISM, UNSPECIFIED Status: Chronic Qualifiers: Hypothyroidism type: unspecified Qualified Code(s): E03.9 - Hypothyroidism , unspecified (10) Hypokalemia Code(s): E87.6 - HYPOKALEMIA Status: Acute (11) Hypokalemia due to excessive renal loss of potassium Code(s): E87.6 - HYPOKALEMIA Status: Acute (12) Hypomagnesemia Code(s): E83.42 - HYPOMAGNESEMIA Status: Acute - Plan old records reviewed/req, continue antibiotics, PT/OT, social work case manager 04/01/19 try bedside swallow evaluation will see if she does not need restraints continue IVF source of sepsis unclear, continue empiric antibiotics at this time not stable and not ideal to do MRI ( does not have focal deficit but PRES possible form high BP and hyperglycemia) will monitor closely repeat labs tomorrow no family bedside to update 04/02 spoke with daughter and updated plan of care continue empiric antibiotic reduce IVF may need sitter to avoid restraint so far culture negative will check lactic acid and beta [place] as she has [employer] insurance, transfer process initiated 04/03/19 as pt still encephalopathic and unclear etiology, will do EEG and consult neurology medication reviewed and continue to provide supportive care DC IVF start PT/OT as tolerated, discharge planning DC vancomycin, continue cefepime diet as tolerated 04/04 replace potassium and magnesium continue cefepime eeg and neuro to see medication reviewed as above and continue to provide supportive care sitter bedside requiring restraint as needed for safety
--- NOTE | 2019-04-04 16:17 | CON ---
DATE OF CONSULTATION: 04/04/2019 CONSULTING PHYSICIAN: Hospitalist Services. IMPRESSION: Probable metabolic encephalopathy. PLAN: 1. Further lab work is ordered. 2. Monitor clinical course. HISTORY OF PRESENT ILLNESS: Ms. Murphy is a 59-year-old black female with a history of diabetes. She presented with a metabolic acidosis and elevated white count. She has been agitated and confused since the admission. They tried her on Geodon, which only seemed to aggravate the situation. She was receiving some Ativan p.r.n., but has not had any in the last 24 hours. Her nurse reports at this point, she is quite down quite a bit. She has gotten more appropriate and responsive. She recognized her son when he came to visit. She has been able to feed herself and drink independently. She has not had any seizure-like activity. She had a CT scan of the brain done, which was unremarkable. Her lab work was otherwise unremarkable for any evidence of an infection. She denies that there was any alcohol or illicit drug use prior to admission. PAST MEDICAL HISTORY: Diabetes. ALLERGIES: PER CHART. SOCIAL HISTORY: No alcohol or illicit drug use. FAMILY HISTORY: Noncontributory. REVIEW OF SYSTEMS: Ten-system review of systems otherwise negative. PHYSICAL EXAMINATION: GENERAL: She is a well-nourished, middle-aged woman, sitting up in bed, feeding herself breakfast. HEENT: Pupils are equal and reactive. Conjunctivae clear. Oropharynx clear. EXTREMITIES: No cyanosis, clubbing, or edema. NEUROLOGIC: She was alert and cooperative. She was oriented to person, place, and month. She was a bit slow in her answers, but they were appropriate. Her speech is fluent and clear. Cranial nerves exam was unremarkable. She had no fix or drift. There was no asterixis present. Sensation was intact to touch. No abnormal movements were seen. SUMMARY: This is a middle-aged woman with some improving encephalopathy. Her workup thus far has been only notable for her metabolic acidosis. We will check for the lab work and follow her course. Job ID: [id number]
[2019-04-05] MEDS: HumaLOG 300 UNITS/3 ML VIAL SC PRN ×5 (01:45→21:14)
[2019-04-05 05:46] LABS: Lactic Acid 1.1 mmol/L (0.5-2.2)
[2019-04-05 05:48] LABS: Anion Gap 14 mmol/L (10-20); BUN (Urea Nitrogen) 13 mg/dL (9.8-20.1); Calc. Creatinine Clearance 155 mL/min (70-130); Calcium 8.9 mg/dL (7.8-10.44); Carbon Dioxide 20 mmol/L (22-29); Chloride 109 mmol/L (98-107); Estimated GFR-MDRD 71; Glucose 181 mg/dL (70-105); Magnesium 1.7 mg/dL (1.6-2.6); Sodium 140 mmol/L (136-145)
[2019-04-05 06:12] LABS: Phosphorus 2.1 mg/dL (2.3-4.7)
[2019-04-05 06:15] LABS: Free T4 (Free Thyroxine) 1.04 ng/dL (0.70-1.48)
[2019-04-05] MEDS: Metoprolol Tartrate 25 MG TAB PO SCH ×2 (08:32→21:04)
[2019-04-05] MEDS: Gabapentin 300 MG CAP PO SCH ×3 (08:33→21:04)
[2019-04-05] MEDS: Amitriptyline HCl 25 MG TAB PO SCH (08:33)
[2019-04-05] MEDS: Losartan 25 MG TAB PO SCH (08:33)
[2019-04-05] MEDS: Famotidine 20 MG TAB PO SCH ×2 (08:33→21:03)
[2019-04-05] MEDS: Levothyroxine Sodium 50 MCG TAB PO SCH (08:33)
[2019-04-05] MEDS: Amlodipine 5 MG TAB PO SCH (08:34)
[2019-04-05] MEDS: Cefepime 2 GM in Sodium Chloride 0.9% 100 ML IVPB SCH ×2 (08:34→21:04)
--- NOTE | 2019-04-05 10:41 | PDOC.HOSPP ---
- Subjective Encounter Date: 04/05/19 Encounter Time: 08:45 Subjective: Patient seen and examined. No new complaints. No overnight events - Objective Vital Signs & Weight: Vital Signs (12 hours) Temp Pulse Resp BP BP Pulse Ox 04/05/19 08:34 98.2 F 89 18 163/79 H 163/79 H 96 04/05/19 03:08 99.4 F 85 18 161/85 H 95 04/04/19 23:03 97.7 F 86 18 168/96 H 97 Weight Weight 345 lb I&O: 04/04/19 04/05/19 04/06/19 06:59 06:59 06:59 Intake Total 600 1620 Output Total 700 Balance -100 1620 Result Diagrams: 04/04/19 05:04 04/05/19 05:02 Additional Labs: Accuchecks 04/05/19 04/04/19 04/04/19 05:36 19:56 16:31 POC Glucose 195 H 182 H 187 H 04/04/19 03/31/19 03/31/19 12:10 19:37 18:36 POC Glucose 167 H 340 H 453 H 03/31/19 03/31/19 03/31/19 15:53 14:54 12:17 POC Glucose 427 H 447 H 445 H 03/31/19 08:33 POC Glucose 436 H Hospitalist ROS - Review of Systems ENT: denies: ear pain, ear discharge, nose pain, nose discharge, nose congestion , mouth pain, mouth swelling, throat pain, throat swelling, other Respiratory: denies: cough, dry, shortness of breath, hemoptysis, SOB with excertion, pleuritic pain, sputum, wheezing, other Cardiovascular: denies: chest pain, palpitations, orthopnea, paroxysmal noc. dyspnea, edema, light headedness, other Gastrointestinal: denies: nausea, vomiting, abdominal pain, diarrhea, constipation, melena, hematochezia, other Genitourinary: denies: dysuria, frequency, incontinence, hematuria, retention, other Musculoskeletal: denies: neck pain, shoulder pain, arm pain, back pain, hand pain, leg pain, foot pain, other Skin: denies: rash, lesions, haja, bruising, other Neurological: denies: weakness, numbness, incoordination, change in speech, confusion, seizures, other - Medication Medications: Active Medications Generic Name Dose Route Start Last Admin Trade Name Freq PRN Reason Stop Dose Admin Acetaminophen 650 mg 04/02/19 10:58 04/03/19 17:07 Tylenol PO 650 mg Q4H PRN Administration Fever > 101 Amitriptyline HCl 25 mg 04/03/19 09:00 04/05/19 08:33 Elavil PO 25 mg DAILY LALO Administration Amlodipine Besylate 5 mg 04/03/19 09:00 04/05/19 08:34 Norvasc PO 5 mg DAILY LALO Administration Atorvastatin Calcium 20 mg 04/03/19 21:00 04/04/19 20:09 Lipitor PO 20 mg HS LALO Administration Famotidine 20 mg 04/04/19 09:00 04/05/19 08:33 Pepcid PO 20 mg BID LALO Administration Gabapentin 600 mg 04/03/19 09:00 04/05/19 08:33 Neurontin PO 600 mg TID LALO Administration Hydralazine HCl 10 mg 03/31/19 15:12 04/03/19 04:12 Apresoline SLOW IVP 10 mg Q4H PRN Administration SBP > 180 and HR < 70 Cefepime HCl 2 gm/ Sodium 100 mls @ 200 mls/hr 04/02/19 21:00 04/05/19 08:34 Chloride IVPB 100 mls 0900,2100 LALO Administration Insulin Human Lispro 0 units 03/31/19 15:02 04/05/19 06:33 Humalog SC 2 unit .MODERATE SLIDING SC PRN Administration Moderate Correctional Scale Labetalol HCl 20 mg 03/31/19 15:12 04/01/19 19:39 Normodyne SLOW IVP 20 mg Q4H PRN Administration SBP > 180 and HR >/= 70 Levothyroxine Sodium 50 mcg 04/03/19 09:00 04/05/19 08:33 Synthroid PO 50 mcg DAILY LALO Administration Lorazepam 1 mg 03/31/19 22:46 04/03/19 23:16 Ativan SLOW IVP 1 mg Q4H PRN Administration Anxiety/Agitation Losartan Potassium 100 mg 04/03/19 09:00 04/05/19 08:33 Cozaar PO 100 mg DAILY LALO Administration Metoprolol Tartrate 25 mg 04/04/19 09:00 04/05/19 08:32 Lopressor PO 25 mg BID LALO Administration Ziprasidone 20 mg 04/02/19 15:09 04/03/19 01:50 Geodon IM 20 mg Q6H PRN Administration Agitation - Exam General Appearance: NAD, awake alert Eye: PERRL, anicteric sclera ENT: normocephalic atraumatic, no oropharyngeal lesions Neck: supple, symmetric, no JVD Heart: RRR, no murmur, no gallops Respiratory: CTAB, no wheezes, no rales, no ronchi Gastrointestinal: soft, non-tender, non-distended, normal bowel sounds Extremities: no cyanosis, no clubbing, no edema Skin: normal turgor, no lesions Neurological: no focal deficits Musculoskeletal: normal tone, normal strength Psychiatric: normal affect, normal behavior, A&O x 3 Hosp A/P (1) Acute metabolic encephalopathy Code(s): G93.41 - METABOLIC ENCEPHALOPATHY Status: Resolved (2) Sepsis Code(s): A41.9 - SEPSIS, UNSPECIFIED ORGANISM Status: Suspected Qualifiers: Sepsis type: sepsis due to unspecified organism Sepsis acute organ dysfunction status: with acute organ dysfunction Severe sepsis acute organ dysfunction type: encephalopathy Severe sepsis shock status: without septic shock Qualified Code(s): A41.9 - Sepsis, unspecified organism; R65.20 - Severe sepsis without septic shock; G93.40 - Encephalopathy, unspecified (3) Lactic acidosis Code(s): E87.2 - ACIDOSIS Status: Acute (4) Hyperglycemia due to type 2 diabetes mellitus Code(s): E11.65 - TYPE 2 DIABETES MELLITUS WITH HYPERGLYCEMIA Status: Acute Qualifiers: Diabetes mellitus usp insulin use: with usp use Qualified Code( s): E11.65 - Type 2 diabetes mellitus with hyperglycemia; Z79.4 - checkroom chief ( current) use of insulin (5) Morbid obesity with BMI of 50.0-59.9, adult Code(s): E66.01 - MORBID (SEVERE) OBESITY DUE TO EXCESS CALORIES; Z68.43 - BODY MASS INDEX (BMI) 50.0-59.9, ADULT Status: Chronic (6) Acute kidney injury Code(s): N17.9 - ACUTE KIDNEY FAILURE, UNSPECIFIED Status: Acute (7) Hypertension Code(s): I10 - ESSENTIAL (PRIMARY) HYPERTENSION Status: Chronic (8) Dyslipidemia Code(s): E78.5 - HYPERLIPIDEMIA, UNSPECIFIED Status: Chronic (9) Hypothyroidism Code(s): E03.9 - HYPOTHYROIDISM, UNSPECIFIED Status: Chronic Qualifiers: Hypothyroidism type: unspecified Qualified Code(s): E03.9 - Hypothyroidism , unspecified (10) Hypokalemia Code(s): E87.6 - HYPOKALEMIA Status: Acute (11) Hypokalemia due to excessive renal loss of potassium Code(s): E87.6 - HYPOKALEMIA Status: Acute (12) Hypomagnesemia Code(s): E83.42 - HYPOMAGNESEMIA Status: Acute - Plan old records reviewed/req, PT/OT, case management social worker 04/01/19 try bedside swallow evaluation will see if she does not need restraints continue IVF source of sepsis unclear, continue empiric antibiotics at this time not stable and not ideal to do MRI ( does not have focal deficit but PRES possible form high BP and hyperglycemia) will monitor closely repeat labs tomorrow no family bedside to update 04/02 spoke with daughter and updated plan of care continue empiric antibiotic reduce IVF may need sitter to avoid restraint so far culture negative will check lactic acid and beta [place] as she has [employer] insurance, transfer process initiated 04/03/19 as pt still encephalopathic and unclear etiology, will do EEG and consult neurology medication reviewed and continue to provide supportive care DC IVF start PT/OT as tolerated, discharge planning DC vancomycin, continue cefepime diet as tolerated 04/04 replace potassium and magnesium continue cefepime eeg and neuro to see medication reviewed as above and continue to provide supportive care sitter bedside requiring restraint as needed for safety 04/05/19 encephalopathy resolved now ambulate as tolerated and start discharge planning medication reviewed as above and symptomatic treatment accucheck achs no need of eeg
[2019-04-05] MEDS: Atorvastatin Calcium 20 MG TAB PO SCH (21:03)
[2019-04-05] MEDS: Acetaminophen 500 MG TAB PO PRN (23:57)
[2019-04-06] MEDS: HumaLOG 300 UNITS/3 ML VIAL SC PRN ×2 (05:49→12:11)
[2019-04-06] MEDS: Losartan 25 MG TAB PO SCH (09:11)
[2019-04-06] MEDS: Gabapentin 300 MG CAP PO SCH ×2 (09:11→14:19)
[2019-04-06] MEDS: Amitriptyline HCl 25 MG TAB PO SCH (09:11)
[2019-04-06] MEDS: Metoprolol Tartrate 25 MG TAB PO SCH (09:11)
[2019-04-06] MEDS: Amlodipine 5 MG TAB PO SCH (09:12)
[2019-04-06] MEDS: Levothyroxine Sodium 50 MCG TAB PO SCH (09:12)
[2019-04-06] MEDS: Famotidine 20 MG TAB PO SCH (09:12)
--- NOTE | 2019-04-06 09:41 | EEG ---
Referring Physician: [facility] # [id number] TEST TYPE: ROUTINE PORTABLE INPATIENT REPORT: AN EEG USING THE INTERNATIONAL TEN-TWENTY SYSTEM OF ELECTRODE PLACEMENT WAS PERFORMED. The best waking background is a 8 hertz alpha frequency. The dominant frequency is 7-7.5 hertz theta. There is some intermixed delta seen occasionally. No epileptiform features were present. Photic stimulation was unremarkable. IMPRESSION: THIS STUDY IS ABNORMAL FOR THE FINDINGS OF SOME MILD DIFFUSE SLOWING CONSISTENT WITH A DIFFUSE ENCEPHALOPATHIC PROCESS. Refining Engineer: MUKESH Employment Trainer: [email or web address]
--- NOTE | 2019-04-06 10:22 | PDOC.HOSPP ---
- Subjective Encounter Date: 04/06/19 Encounter Time: 08:10 Subjective: Patient seen and examined. No new complaints. No overnight events - Objective Vital Signs & Weight: Vital Signs (12 hours) Temp Pulse Resp BP BP Pulse Ox 04/06/19 09:12 88 154/81 H 95 04/06/19 08:00 98.6 F 88 16 154/81 H 95 04/06/19 03:35 97.8 F 84 18 159/78 H 94 L 04/05/19 23:32 98.4 F 83 16 144/85 H 96 Weight Weight 345 lb I&O: 04/05/19 04/06/19 04/07/19 06:59 06:59 06:59 Intake Total 1620 1720 Balance 1620 1720 Result Diagrams: 04/04/19 05:04 04/05/19 05:02 Additional Labs: Accuchecks 04/06/19 04/05/19 04/05/19 05:08 21:04 16:39 POC Glucose 249 H 292 H 264 H 04/05/19 04/05/19 03/31/19 10:59 08:50 10:43 POC Glucose 252 H 177 H 441 H Hospitalist ROS - Review of Systems ENT: denies: ear pain, ear discharge, nose pain, nose discharge, nose congestion , mouth pain, mouth swelling, throat pain, throat swelling, other Respiratory: denies: cough, dry, shortness of breath, hemoptysis, SOB with excertion, pleuritic pain, sputum, wheezing, other Cardiovascular: denies: chest pain, palpitations, orthopnea, paroxysmal noc. dyspnea, edema, light headedness, other Gastrointestinal: denies: nausea, vomiting, abdominal pain, diarrhea, constipation, melena, hematochezia, other Genitourinary: denies: dysuria, frequency, incontinence, hematuria, retention, other Musculoskeletal: denies: neck pain, shoulder pain, arm pain, back pain, hand pain, leg pain, foot pain, other - Medication Medications: Active Medications Generic Name Dose Route Start Last Admin Trade Name Freq PRN Reason Stop Dose Admin Acetaminophen 650 mg 04/02/19 10:58 04/05/19 23:57 Tylenol PO 650 mg Q4H PRN Administration Fever > 101 Amitriptyline HCl 25 mg 04/03/19 09:00 04/06/19 09:11 Elavil PO 25 mg DAILY LALO Administration Amlodipine Besylate 5 mg 04/03/19 09:00 04/06/19 09:12 Norvasc PO 5 mg DAILY LALO Administration Atorvastatin Calcium 20 mg 04/03/19 21:00 04/05/19 21:03 Lipitor PO 20 mg HS LALO Administration Famotidine 20 mg 04/04/19 09:00 04/06/19 09:12 Pepcid PO 20 mg BID LALO Administration Gabapentin 600 mg 04/03/19 09:00 04/06/19 09:11 Neurontin PO 600 mg TID LALO Administration Hydralazine HCl 10 mg 03/31/19 15:12 04/03/19 04:12 Apresoline SLOW IVP 10 mg Q4H PRN Administration SBP > 180 and HR < 70 Insulin Human Lispro 0 units 03/31/19 15:02 04/06/19 05:49 Humalog SC 4 unit .MODERATE SLIDING SC PRN Administration Moderate Correctional Scale Labetalol HCl 20 mg 03/31/19 15:12 04/01/19 19:39 Normodyne SLOW IVP 20 mg Q4H PRN Administration SBP > 180 and HR >/= 70 Levothyroxine Sodium 50 mcg 04/03/19 09:00 04/06/19 09:12 Synthroid PO 50 mcg DAILY LALO Administration Lorazepam 1 mg 03/31/19 22:46 04/03/19 23:16 Ativan SLOW IVP 1 mg Q4H PRN Administration Anxiety/Agitation Losartan Potassium 100 mg 04/03/19 09:00 04/06/19 09:11 Cozaar PO 100 mg DAILY LALO Administration Metoprolol Tartrate 25 mg 04/04/19 09:00 04/06/19 09:11 Lopressor PO 25 mg BID LALO Administration Ziprasidone 20 mg 04/02/19 15:09 04/03/19 01:50 Geodon IM 20 mg Q6H PRN Administration Agitation - Exam General Appearance: NAD, awake alert Eye: PERRL, anicteric sclera ENT: normocephalic atraumatic, no oropharyngeal lesions Neck: supple, symmetric, no JVD Heart: RRR, no murmur, no gallops Respiratory: CTAB, no wheezes, no rales, no ronchi Gastrointestinal: soft, non-tender, non-distended, normal bowel sounds Extremities: no cyanosis, no clubbing, no edema Skin: normal turgor, no lesions Neurological: no focal deficits Musculoskeletal: normal tone, normal strength Psychiatric: normal affect, normal behavior, A&O x 3 Hosp A/P (1) Acute metabolic encephalopathy Code(s): G93.41 - METABOLIC ENCEPHALOPATHY Status: Resolved (2) Sepsis Code(s): A41.9 - SEPSIS, UNSPECIFIED ORGANISM Status: Suspected Qualifiers: Sepsis type: sepsis due to unspecified organism Sepsis acute organ dysfunction status: with acute organ dysfunction Severe sepsis acute organ dysfunction type: encephalopathy Severe sepsis shock status: without septic shock Qualified Code(s): A41.9 - Sepsis, unspecified organism; R65.20 - Severe sepsis without septic shock; G93.40 - Encephalopathy, unspecified (3) Lactic acidosis Code(s): E87.2 - ACIDOSIS Status: Acute (4) Hyperglycemia due to type 2 diabetes mellitus Code(s): E11.65 - TYPE 2 DIABETES MELLITUS WITH HYPERGLYCEMIA Status: Acute Qualifiers: Diabetes mellitus fdc insulin use: with fdc use Qualified Code( s): E11.65 - Type 2 diabetes mellitus with hyperglycemia; Z79.4 - joint terminal attack controller ( current) use of insulin (5) Morbid obesity with BMI of 50.0-59.9, adult Code(s): E66.01 - MORBID (SEVERE) OBESITY DUE TO EXCESS CALORIES; Z68.43 - BODY MASS INDEX (BMI) 50.0-59.9, ADULT Status: Chronic (6) Acute kidney injury Code(s): N17.9 - ACUTE KIDNEY FAILURE, UNSPECIFIED Status: Acute (7) Hypertension Code(s): I10 - ESSENTIAL (PRIMARY) HYPERTENSION Status: Chronic (8) Dyslipidemia Code(s): E78.5 - HYPERLIPIDEMIA, UNSPECIFIED Status: Chronic (9) Hypothyroidism Code(s): E03.9 - HYPOTHYROIDISM, UNSPECIFIED Status: Chronic Qualifiers: Hypothyroidism type: unspecified Qualified Code(s): E03.9 - Hypothyroidism , unspecified (10) Hypokalemia Code(s): E87.6 - HYPOKALEMIA Status: Acute (11) Hypokalemia due to excessive renal loss of potassium Code(s): E87.6 - HYPOKALEMIA Status: Acute (12) Hypomagnesemia Code(s): E83.42 - HYPOMAGNESEMIA Status: Acute - Plan old records reviewed/req, continue antibiotics 04/01/19 try bedside swallow evaluation will see if she does not need restraints continue IVF source of sepsis unclear, continue empiric antibiotics at this time not stable and not ideal to do MRI ( does not have focal deficit but PRES possible form high BP and hyperglycemia) will monitor closely repeat labs tomorrow no family bedside to update 04/02 spoke with daughter and updated plan of care continue empiric antibiotic reduce IVF may need sitter to avoid restraint so far culture negative will check lactic acid and beta [place] as she has [employer] insurance, transfer process initiated 04/03/19 as pt still encephalopathic and unclear etiology, will do EEG and consult neurology medication reviewed and continue to provide supportive care DC IVF start PT/OT as tolerated, discharge planning DC vancomycin, continue cefepime diet as tolerated 04/04 replace potassium and magnesium continue cefepime eeg and neuro to see medication reviewed as above and continue to provide supportive care sitter bedside requiring restraint as needed for safety 04/05/19 encephalopathy resolved now ambulate as tolerated and start discharge planning medication reviewed as above and symptomatic treatment accucheck achs no need of eeg 04/06/19 discharge to home medication reviewed as above and continue to provide supportive care see discharge wily
[2019-04-06 11:15] VITALS: BP 120/75; TEMP 98
--- NOTE | 2019-04-06 12:34 | DIS ---
DATE OF ADMISSION: 03/31/2019 DATE OF DISCHARGE: 04/06/2019 PRIMARY CARE PHYSICIAN: Dr. Javad Murdock. DISCHARGE DISPOSITION: Home. PRIMARY DISCHARGE DIAGNOSES: 1. Acute metabolic encephalopathy, resolved. 2. Acute kidney injury, improved. 3. Hyperglycemia associated with diabetes type 2. 4. Hypokalemia, hypomagnesemia, and hypophosphatemia corrected. 5. Lactic acidosis, resolved. SECONDARY DISCHARGE DIAGNOSES: Morbid obesity with BMI 50, hypothyroidism, hypertension, dyslipidemia, chronic low back pain. PRIMARY PROCEDURE/OPERATION: None. RADIOLOGICAL INVESTIGATION: Abdomen and pelvis CT scan was unremarkable. CT brain was negative for any acute intracranial process. Chest x-ray negative for any acute cardiopulmonary process. SIGNIFICANT LABORATORY DATA: WBC 9.1, hemoglobin 12.8, platelet 236. Sodium 140, potassium 3.0, BUN 13, creatinine 0.98, calcium 8.9, magnesium 1.7. 2.1. B12 of 1045. Free T4 of 1.04. TSH 0.36. Cortisol 10.20, ammonia 28. Urinalysis; glucosuria, protein, ketonuria. Serum ketones of 2.09. Urine drug screen, negative. Serum drug screen, negative. Blood culture, negative. DISCHARGE MEDICATIONS: 1. Acyclovir 400 mg p.o. b.i.d. as per home dosage. 2. Amitriptyline 25 mg p.o. daily. 3. Amlodipine 5 mg p.o. daily. 4. Gabapentin 600 mg p.o. t.i.d. 5. Humulin R 35 units subcu b.i.d. 6. Synthroid 50 mcg p.o. daily. 7. Losartan 100 mg p.o. daily. 8. Zocor 40 mg p.o. at bedtime. 9. Tramadol 50 mg p.r.n. 10. Cipro 500 mg p.o. twice daily for 5 more days. 11. Metoprolol 25 mg p.o. b.i.d. 12. Zanaflex 2 mg q.i.d. p.r.n. only. CONTRAINDICATION: None. CODE STATUS: Full code. INPATIENT NURSING SERVICES MANAGER: Dr. Nj Cha, Neurology was consulted for altered mental status. TEST RESULT PENDING ON DISCHARGE: None. ALLERGIES: KEFLEX. DISCHARGE PLAN: Posthospital, the patient will follow up with primary care physician. HOSPITAL COURSE: A 59-year-old female with above-mentioned medical problem, who was admitted by Dr. Nance. Please see his H and P for further details. The patient was brought to ER for altered mental status. The patient was not able to provide any history. Initial evaluation in the emergency room with CT brain was unremarkable. Chest x-ray was also unremarkable. Routine blood test showed acute kidney injury and hyperglycemia with mild acidosis. The patient was treated with IV fluid and empiric antibiotic therapy. The patient's condition did not improve over the last few days and that is why we consulted Neurology. We did EEG, which also showed diffuse encephalopathy process. After few days, the patient's condition spontaneously improved and she became completely normal. We restarted her home medication while in the hospital. The patient is ambulatory and she does not request any need on discharge. At this point, we do not have any clear-cut explanation for her altered mental status, but still we suspected possible sepsis. Though culture was negative, given leukocytosis and we also suspected metabolic etiology that also improved. While in hospital, we corrected the electrolytes. Initially on admission, her hemoglobin was 6.3 and that is why she was given blood transfusion, but repeat testing showed normal hemoglobin and subsequently her hemoglobin remained normal and this patient did not require any anemia evaluation. By the time of discharge, the patient is ambulatory, tolerating p.o. well and hemodynamically stable. The patient is seen and examined at bedside today. Please see my progress note from today for further detail. Job ID: [id number]
[2019-04-06] MEDS ORDERED: Cipro 250 MG TAB PO SCH (20:00)
== END 2019-04-06 15:50 | disposition home or self-care (01) | DRG 871 ==
LOC: ERS 08:26 → 2NO 12:05 → SJJU 04-03 09:51
PROVIDERS: ADMIT Internal Medicine; ATTEND Internal Medicine
DX: A41.9 Sepsis, unspecified organism (principal); G93.41 Metabolic encephalopathy; N17.9 Acute kidney failure, unspecified; E87.2 Acidosis; Z68.43 Body mass index [BMI] 50.0-59.9, adult; E11.65 Type 2 diabetes mellitus with hyperglycemia; E87.6 Hypokalemia; E83.42 Hypomagnesemia; E66.01 Morbid (severe) obesity due to excess calories; E03.9 Hypothyroidism, unspecified; I10 Essential (primary) hypertension; E78.5 Hyperlipidemia, unspecified; G89.29 Other chronic pain; E11.40 Type 2 diabetes mellitus with diabetic neuropathy, unspecified; D64.9 Anemia, unspecified; R65.20 Severe sepsis without septic shock; E83.39 Other disorders of phosphorus metabolism; Z79.4 Long term (current) use of insulin; Z88.1 Allergy status to other antibiotic agents; Z90.710 Acquired absence of both cervix and uterus
CPT/HCPCS: 36415; 36416; 36430; 70450; 71045; 74177; 80048; 80053; 80202; 80306; 80307; 81003; 81015; 81025; 82010; 82140; 82533; 82607; 83036; 83605; 83690; 83735; 84100; 84439; 84443; 84484; 85025; 85652; 86850; 86900; 86901; 87040; 90471; 90686; 93005; 95816; 95819; 96365; 96375; 96376; A4353; G0008; J0360; J0692; J1200; J1630; J1815; J2060; J2270; J2405; J2543; J3370; J3475; J3486; J3490; J7050; P9016; Q9967; S0028